=== PATIENT | female | born 1955 | race Caucasian/White ===

== ENCOUNTER → 2016-10-11 | Outpatient (CLI) | payer OTHER | END | disposition home or self-care (01) | LOC: CARD 12:30 | PROVIDERS: ATTEND Registered Nurse | DX: R94.31 Abnormal electrocardiogram [ECG] [EKG] (principal); S09.90XS Unspecified injury of head, sequela; X58.XXXS Exposure to other specified factors, sequela | CPT/HCPCS: 95819 ==

== ENCOUNTER 2020-12-28 09:18 | Inpatient (IN) | payer SELFPAY ==
[~2020-12-28] VITALS: Ht 172.7 cm; Wt 85.0 kg
[2020-12-28] MEDS ORDERED: KETOROLAC 30 MG/1 ML ONE (10:26)
[2020-12-28] MEDS ORDERED: ONDANSETRON 2MG/ML, 2ML ONE (10:26)
--- NOTE | 2020-12-28 10:49 | NUR ---
IV PLACED, LABS DRAWN WITH START. COVID SWAB COMPLETED/WALKED TO LAB. PT ON ALL ROOM MONITORING. MEDS GIVEN FOR NAUSEA AND CW PAIN, CLARK, SORE THROAT PER ERP ORDER. CALL LIGHT WITHIN REACH.
[2020-12-28] MEDS ORDERED: KETOROLAC 15 MG/1ML IVPush ONE (11:00)
[2020-12-28] MEDS ORDERED: ONDANSETRON 2MG/ML, 2ML IVPush ONE (11:00)
[2020-12-28 11:01] LABS: BASOPHILS % (AUTO) 1 % (0-1); EOSINOPHILS % (AUTO) 0 % (1-7); LYMPHOCYTES % (AUTO) 20 % (22-44); MEAN CORPUSCULAR HEMOGLOBIN 29.2 pg (27.0-34.8); MEAN CORPUSCULAR HGB CONC 34.3 g/dL (32.4-35.8); MEAN PLATELET VOLUME 9.6 fL (7.4-10.4); MONOCYTES % (AUTO) 18 % (2-9); NEUTROPHILS % (AUTO) 62 % (42-75); PLATELET COUNT 146 x10^3/uL (130-400); RED BLOOD COUNT 5.35 x10^6/uL (3.82-5.3); RED CELL DISTRIBUTION WIDTH 13.7 % (9.6-15.2)
[2020-12-28 11:09] LABS: ALBUMIN 4.2 g/dL (3.4-5.0); ANION GAP 7 mmol/L (5-15); CALCIUM 9.5 mg/dL (8.5-10.1); CHLORIDE 97 mmol/L (98-107)
[2020-12-28 11:16] LABS: ALANINE AMINOTRANSFERASE 52 U/L (12-78); ALKALINE PHOSPHATASE 79 U/L (45-117); BILIRUBIN,TOTAL 0.5 mg/dL (0.2-1.0); CREATININE 0.68 mg/dL (0.55-1.02)
[2020-12-28 11:17] LABS: TOTAL PROTEIN 8.5 g/dL (6.4-8.2)
[2020-12-28] MEDS ORDERED: SODIUM CHLORIDE 0.9% 1,000ML IVBOLUS ONE (11:30)
[2020-12-28] MEDS ORDERED: SODIUM CHLORIDE FLUSH 10ML SYR IVF ONE ×2 (11:30)
[2020-12-28] MEDS ORDERED: POTASSIUM CHLORIDE 20 MEQ PACKET ONE (11:34)
[2020-12-28] MEDS ORDERED: POTASSIUM CHLORIDE 20 MEQ TAB.ER.PRT PO ONE (12:00)
[2020-12-28] MEDS ORDERED: CEFTRIAXONE 1,000 MG in DEXTROSE 5% 50 ML IVPB ONE (12:00)
[2020-12-28] MEDS ORDERED: ACETAMINOPHEN 500 MG TABLET PO ONE (13:00)
[2020-12-28] MEDS ORDERED: DEXAMETHASONE 4 MG/ML, 1ML IVPush ONE (13:00)
[2020-12-28] MEDS ORDERED: DEXAMETHASONE 4 MG/ML, 1ML ONE (13:09)
[2020-12-28] MEDS ORDERED: ACETAMINOPHEN 500 MG TABLET ONE (13:10)
--- NOTE | 2020-12-28 13:20 | NUR ---
PT MEDICATED PER ERP ORDER. PT REPORTS CLARK AT 8/10-TYLENOL GIVEN. H IN TO SEE PT. REPORT TO KELLY BARRY READY FOR TRANSPORT.
[2020-12-28] MEDS ORDERED: ONDANSETRON 2MG/ML, 2ML IVPush PRN (13:30)
[2020-12-28] MEDS ORDERED: KETOROLAC 30 MG/1 ML IV PRN (13:30)
[2020-12-28] MEDS ORDERED: GUAIFENESIN/COD200MG-20MG/10ML LIQUID PO PRN (13:30)
[2020-12-28] MEDS ORDERED: hydrALAzine 20 MG/ML, 1ML IVPush PRN (13:30)
[2020-12-28 13:40] LABS: C-REACTIVE PROTEIN, QUANT 1.4 mg/dL (0.02-0.49)
--- NOTE | 2020-12-28 14:40 | NUR ---
CALL TO FLOOR INQUIRING ON THEIR ABILITY TO TRANSPORT PT TO ADMIT ROOM. RN AND ADDITIONAL STAFF TO TRANSPORT.
[2020-12-28 14:43] LABS: FREE T4 (FREE THYROXINE) 1.33 ng/dL (0.76-1.46)
[2020-12-28 14:53] VITALS: BP 110/72
[2020-12-28] MEDS ORDERED: LEVE500T8 PO (14:53)
[2020-12-28] MEDS ORDERED: OXYC-306 PO (14:53)
[2020-12-28] MEDS ORDERED: LOSA1TAB22 PO (14:53)
[2020-12-28] MEDS ORDERED: SERT100T PO (14:53)
[2020-12-28] MEDS: ASCORBIC ACID 500 MG TABLET PO SCH (15:31)
[2020-12-28] MEDS: AZITHROMYCIN 500 MG TABLET PO SCH (15:31)
[2020-12-28] MEDS: ENOXAPARIN 30 MG/0.3 ML SQ SCH (15:31)
[2020-12-28] MEDS: FAMOTIDINE 20 MG TABLET PO SCH (19:59)
[2020-12-28] MEDS: LEVETIRACETAM 500 MG TABLET PO SCH (19:59)
[2020-12-28] MEDS: TRAZODONE 50MG TABLET PO SCH (19:59)
[2020-12-28] MEDS: MELATONIN 5 MG TABLET PO SCH (20:00)
[2020-12-28] MEDS: SODIUM CHLORIDE FLUSH 10ML SYR IVF SCH (20:00)
[2020-12-28 21:05] VITALS: BP 108/73
[2020-12-28] MEDS ORDERED: TEMAZEPAM 15 MG CAPSULE PO PRN (22:00)
[2020-12-29 02:20] VITALS: BP 119/73
[2020-12-29] MEDS: ENOXAPARIN 30 MG/0.3 ML SQ SCH ×2 (02:31→15:33)
[2020-12-29 02:46] LABS: MICROSCOPIC NOT IND
[2020-12-29 06:39] LABS: BASOPHILS % (AUTO) 1 % (0-1); EOSINOPHILS % (AUTO) 0 % (1-7); LYMPHOCYTES % (AUTO) 22 % (22-44); MEAN CORPUSCULAR HEMOGLOBIN 29.2 pg (27.0-34.8); MEAN CORPUSCULAR HGB CONC 34.3 g/dL (32.4-35.8); MEAN PLATELET VOLUME 9.1 fL (7.4-10.4); MONOCYTES % (AUTO) 12 % (2-9); NEUTROPHILS % (AUTO) 66 % (42-75); PLATELET COUNT 126 x10^3/uL (130-400); RED BLOOD COUNT 4.79 x10^6/uL (3.82-5.3); RED CELL DISTRIBUTION WIDTH 13.6 % (9.6-15.2)
[2020-12-29] MEDS: DEXAMETHASONE 4 MG/ML, 1ML IVPush SCH (06:48)
[2020-12-29 06:51] LABS: ALANINE AMINOTRANSFERASE 36 U/L (12-78); ALBUMIN 3.4 g/dL (3.4-5.0); ANION GAP 7 mmol/L (5-15); CALCIUM 8.7 mg/dL (8.5-10.1); CHLORIDE 101 mmol/L (98-107); CREATININE 0.48 mg/dL (0.55-1.02)
[2020-12-29 06:52] LABS: ALKALINE PHOSPHATASE 68 U/L (45-117); BILIRUBIN,TOTAL 0.4 mg/dL (0.2-1.0); TOTAL PROTEIN 7.2 g/dL (6.4-8.2)
[2020-12-29] MEDS ORDERED: POTASSIUM CHLORIDE 20 MEQ TAB.ER.PRT PO ONE (08:00)
[2020-12-29 08:20] VITALS: BP 125/81
[2020-12-29] MEDS: ASCORBIC ACID 500 MG TABLET PO SCH ×2 (08:52→15:33)
[2020-12-29] MEDS: FAMOTIDINE 20 MG TABLET PO SCH ×2 (08:52→20:18)
[2020-12-29] MEDS: THIAMINE 100MG TABLET PO SCH (08:52)
[2020-12-29] MEDS: AZITHROMYCIN 500 MG TABLET PO SCH (08:53)
[2020-12-29] MEDS: SERTRALINE 100MG TABLET PO SCH (08:54)
[2020-12-29] MEDS: LEVETIRACETAM 500 MG TABLET PO SCH ×2 (08:54→20:18)
[2020-12-29] MEDS: ZINC SULFATE 220 MG CAPSULE PO SCH (08:54)
[2020-12-29] MEDS: CHOLECALCIFEROL 1,000 UNIT TABLET PO SCH (08:55)
[2020-12-29] MEDS: SODIUM CHLORIDE FLUSH 10ML SYR IVF SCH ×2 (08:55→20:20)
[2020-12-29] MEDS ORDERED: LOSARTAN 50MG TABLET PO SCH (09:00)
[2020-12-29] MEDS: OXYcodone/APAP 7.5/325MG TABLET PO PRN ×3 (09:11→20:18)
[2020-12-29 12:41] VITALS: BP 99/66
[2020-12-29] MEDS: CEFTRIAXONE 2 GM in DEXTROSE 5% 50 ML IVPB SCH (12:48)
[2020-12-29 20:05] VITALS: BP 113/74
[2020-12-29] MEDS: MELATONIN 5 MG TABLET PO SCH (20:16)
[2020-12-29] MEDS: TRAZODONE 50MG TABLET PO SCH (20:18)
[2020-12-29 23:57] VITALS: BP 105/70
[2020-12-30] MEDS: OXYcodone/APAP 7.5/325MG TABLET PO PRN ×3 (02:52→16:51)
[2020-12-30] MEDS: ENOXAPARIN 30 MG/0.3 ML SQ SCH ×2 (02:53→14:47)
[2020-12-30 06:55] LABS: ANION GAP 6 mmol/L (5-15); CALCIUM 8.9 mg/dL (8.5-10.1); CHLORIDE 101 mmol/L (98-107)
[2020-12-30 06:56] LABS: CREATININE 0.39 mg/dL (0.55-1.02)
[2020-12-30] MEDS ORDERED: POTASSIUM CHLORIDE 20 MEQ TAB.ER.PRT PO ONE ×2 (07:30→13:30)
[2020-12-30] MEDS: ASCORBIC ACID 500 MG TABLET PO SCH ×2 (09:18→16:51)
[2020-12-30] MEDS: FAMOTIDINE 20 MG TABLET PO SCH ×2 (09:18→20:10)
[2020-12-30] MEDS: THIAMINE 100MG TABLET PO SCH (09:18)
[2020-12-30] MEDS: CHOLECALCIFEROL 1,000 UNIT TABLET PO SCH (09:19)
[2020-12-30] MEDS: AZITHROMYCIN 500 MG TABLET PO SCH (09:19)
[2020-12-30] MEDS: ZINC SULFATE 220 MG CAPSULE PO SCH (09:19)
[2020-12-30] MEDS: SODIUM CHLORIDE FLUSH 10ML SYR IVF SCH ×2 (09:19→20:10)
[2020-12-30] MEDS: LEVETIRACETAM 500 MG TABLET PO SCH ×2 (09:19→20:10)
[2020-12-30] MEDS: DEXAMETHASONE 4 MG/ML, 1ML IVPush SCH (09:19)
[2020-12-30] MEDS: SERTRALINE 100MG TABLET PO SCH (09:20)
[2020-12-30 09:31] VITALS: BP 112/71
[2020-12-30] MEDS ORDERED: MAGNESIUM SULFATE PMX 2GM/50ML 50 ML IV ONE (10:00)
[2020-12-30] MEDS ORDERED: REMDESIVIR 200 MG in SODIUM CHLORIDE 0.9% 250 ML IVPB ONE (14:00)
[2020-12-30] MEDS: CEFTRIAXONE 2 GM in DEXTROSE 5% 50 ML IVPB SCH (14:06)
[2020-12-30 14:07] VITALS: BP 117/75
[2020-12-30] MEDS: FUROSEMIDE 40 MG/4 ML IV SCH (14:46)
[2020-12-30 19:45] VITALS: BP 116/73
[2020-12-30] MEDS: TRAZODONE 50MG TABLET PO SCH (20:10)
[2020-12-30] MEDS: MELATONIN 5 MG TABLET PO SCH (20:10)
[2020-12-31 01:13] VITALS: BP 94/61
[2020-12-31 01:26] VITALS: BP 105/68
[2020-12-31] MEDS: ACETAMINOPHEN 325 MG TABLET PO PRN ×2 (01:42→17:50)
[2020-12-31] MEDS: ENOXAPARIN 30 MG/0.3 ML SQ SCH ×2 (04:17→16:08)
[2020-12-31 07:06] LABS: CALCIUM 8.9 mg/dL (8.5-10.1); CHLORIDE 103 mmol/L (98-107)
[2020-12-31 07:18] LABS: ALANINE AMINOTRANSFERASE 41 U/L (12-78); ALBUMIN 3.3 g/dL (3.4-5.0); ALKALINE PHOSPHATASE 66 U/L (45-117); ANION GAP 9 mmol/L (5-15); BILIRUBIN,TOTAL 0.4 mg/dL (0.2-1.0); CREATININE 0.39 mg/dL (0.55-1.02); TOTAL PROTEIN 7.3 g/dL (6.4-8.2)
[2020-12-31] MEDS: LEVETIRACETAM 500 MG TABLET PO SCH ×2 (09:00→20:27)
[2020-12-31] MEDS: SERTRALINE 100MG TABLET PO SCH (09:00)
[2020-12-31] MEDS: THIAMINE 100MG TABLET PO SCH (09:00)
[2020-12-31] MEDS: AZITHROMYCIN 500 MG TABLET PO SCH (09:01)
[2020-12-31] MEDS: ZINC SULFATE 220 MG CAPSULE PO SCH (09:01)
[2020-12-31] MEDS: CHOLECALCIFEROL 1,000 UNIT TABLET PO SCH (09:01)
[2020-12-31] MEDS: ASCORBIC ACID 500 MG TABLET PO SCH ×2 (09:01→16:08)
[2020-12-31] MEDS: OXYcodone/APAP 7.5/325MG TABLET PO PRN ×4 (09:01→22:20)
[2020-12-31] MEDS: FAMOTIDINE 20 MG TABLET PO SCH ×2 (09:01→20:27)
[2020-12-31] MEDS: DEXAMETHASONE 4 MG/ML, 1ML IVPush SCH (09:02)
[2020-12-31] MEDS: SODIUM CHLORIDE FLUSH 10ML SYR IVF SCH ×2 (09:02→20:26)
[2020-12-31] MEDS: FUROSEMIDE 40 MG/4 ML IV SCH (09:02)
[2020-12-31 09:19] VITALS: BP_SYST 101; BP_SYST 127; BP_DIAS 63; BP_DIAS 81
[2020-12-31 13:33] VITALS: BP 107/69
[2020-12-31] MEDS: CEFTRIAXONE 2 GM in DEXTROSE 5% 50 ML IVPB SCH (13:53)
[2020-12-31] MEDS: REMDESIVIR 100 MG in SODIUM CHLORIDE 0.9% 250 ML IVPB SCH (14:49)
[2020-12-31 19:43] VITALS: BP 103/63
[2020-12-31] MEDS: TRAZODONE 50MG TABLET PO SCH (20:26)
[2020-12-31] MEDS: MELATONIN 5 MG TABLET PO SCH (20:27)
[2021-01-01 00:59] VITALS: BP 100/62
[2021-01-01] MEDS: ENOXAPARIN 30 MG/0.3 ML SQ SCH ×2 (03:06→14:20)
[2021-01-01] MEDS: OXYcodone/APAP 7.5/325MG TABLET PO PRN ×5 (03:06→21:48)
[2021-01-01 06:20] LABS: ALANINE AMINOTRANSFERASE 41 U/L (12-78); ALBUMIN 3.1 g/dL (3.4-5.0); ANION GAP 7 mmol/L (5-15); CHLORIDE 100 mmol/L (98-107); CREATININE 0.46 mg/dL (0.55-1.02)
[2021-01-01 06:23] LABS: ALKALINE PHOSPHATASE 66 U/L (45-117); BILIRUBIN,TOTAL 0.4 mg/dL (0.2-1.0); TOTAL PROTEIN 7.3 g/dL (6.4-8.2)
[2021-01-01] MEDS ORDERED: POTASSIUM CHLORIDE 20 MEQ TAB.ER.PRT PO ONE (06:30)
[2021-01-01 07:40] VITALS: BP 107/70
[2021-01-01] MEDS: THIAMINE 100MG TABLET PO SCH (07:45)
[2021-01-01] MEDS: LEVETIRACETAM 500 MG TABLET PO SCH ×2 (07:45→20:06)
[2021-01-01] MEDS: SERTRALINE 100MG TABLET PO SCH (07:45)
[2021-01-01] MEDS: AZITHROMYCIN 500 MG TABLET PO SCH (07:45)
[2021-01-01] MEDS: ASCORBIC ACID 500 MG TABLET PO SCH ×2 (07:46→17:20)
[2021-01-01] MEDS: ZINC SULFATE 220 MG CAPSULE PO SCH (07:46)
[2021-01-01] MEDS: FAMOTIDINE 20 MG TABLET PO SCH ×2 (07:46→20:06)
[2021-01-01] MEDS: CHOLECALCIFEROL 1,000 UNIT TABLET PO SCH (07:47)
[2021-01-01] MEDS: DEXAMETHASONE 4 MG/ML, 1ML IVPush SCH (07:49)
[2021-01-01] MEDS: FUROSEMIDE 40 MG/4 ML IV SCH (07:49)
[2021-01-01] MEDS: SODIUM CHLORIDE FLUSH 10ML SYR IVF SCH ×2 (07:50→20:06)
[2021-01-01 12:52] VITALS: BP 117/73
[2021-01-01] MEDS: CEFTRIAXONE 2 GM in DEXTROSE 5% 50 ML IVPB SCH (13:05)
[2021-01-01] MEDS: POTASSIUM CHLORIDE 20 MEQ TAB.ER.PRT PO SCH (13:05)
[2021-01-01] MEDS: REMDESIVIR 100 MG in SODIUM CHLORIDE 0.9% 250 ML IVPB SCH (14:14)
[2021-01-01 19:12] VITALS: BP 111/68
[2021-01-01] MEDS: MELATONIN 5 MG TABLET PO SCH (20:06)
[2021-01-01] MEDS: TRAZODONE 50MG TABLET PO SCH (20:06)
[2021-01-02 01:51] VITALS: BP 116/74
[2021-01-02] MEDS: ENOXAPARIN 30 MG/0.3 ML SQ SCH ×2 (02:53→15:00)
[2021-01-02] MEDS: OXYcodone/APAP 7.5/325MG TABLET PO PRN ×3 (05:30→17:05)
[2021-01-02 05:55] LABS: BASOPHILS % (AUTO) 1 % (0-1); EOSINOPHILS % (AUTO) 0 % (1-7); LYMPHOCYTES % (AUTO) 26 % (22-44); MEAN CORPUSCULAR HEMOGLOBIN 28.6 pg (27.0-34.8); MEAN CORPUSCULAR HGB CONC 33.4 g/dL (32.4-35.8); MEAN PLATELET VOLUME 8.6 fL (7.4-10.4); MONOCYTES % (AUTO) 14 % (2-9); NEUTROPHILS % (AUTO) 60 % (42-75); PLATELET COUNT 208 x10^3/uL (130-400); RED BLOOD COUNT 4.62 x10^6/uL (3.82-5.3); RED CELL DISTRIBUTION WIDTH 13.4 % (9.6-15.2)
[2021-01-02 06:06] LABS: CHLORIDE 104 mmol/L (98-107)
[2021-01-02 06:21] LABS: ALANINE AMINOTRANSFERASE 44 U/L (12-78); ALBUMIN 3.1 g/dL (3.4-5.0); ALKALINE PHOSPHATASE 62 U/L (45-117); ANION GAP 7 mmol/L (5-15); BILIRUBIN,TOTAL 0.3 mg/dL (0.2-1.0)
[2021-01-02] MEDS ORDERED: POTASSIUM CHLORIDE 20 MEQ TAB.ER.PRT PO ONE (07:00)
[2021-01-02 07:35] VITALS: BP 111/71
[2021-01-02] MEDS: ZINC SULFATE 220 MG CAPSULE PO SCH (08:08)
[2021-01-02] MEDS: FUROSEMIDE 40 MG/4 ML IV SCH (08:08)
[2021-01-02] MEDS: LEVETIRACETAM 500 MG TABLET PO SCH ×2 (08:08→20:49)
[2021-01-02] MEDS: CHOLECALCIFEROL 1,000 UNIT TABLET PO SCH (08:08)
[2021-01-02] MEDS: POTASSIUM CHLORIDE 20 MEQ TAB.ER.PRT PO SCH (08:08)
[2021-01-02] MEDS: SERTRALINE 100MG TABLET PO SCH (08:09)
[2021-01-02] MEDS: FAMOTIDINE 20 MG TABLET PO SCH ×2 (08:09→20:49)
[2021-01-02] MEDS: SODIUM CHLORIDE FLUSH 10ML SYR IVF SCH ×2 (08:09→20:49)
[2021-01-02] MEDS: AZITHROMYCIN 500 MG TABLET PO SCH (08:09)
[2021-01-02] MEDS: ASCORBIC ACID 500 MG TABLET PO SCH ×2 (08:09→17:04)
[2021-01-02] MEDS: DEXAMETHASONE 4 MG/ML, 1ML IVPush SCH (08:09)
[2021-01-02] MEDS: THIAMINE 100MG TABLET PO SCH (08:09)
[2021-01-02 12:21] VITALS: BP 121/77
[2021-01-02] MEDS: CEFTRIAXONE 2 GM in DEXTROSE 5% 50 ML IVPB SCH (13:09)
[2021-01-02] MEDS: REMDESIVIR 100 MG in SODIUM CHLORIDE 0.9% 250 ML IVPB SCH (15:00)
[2021-01-02 19:52] VITALS: BP 129/77
[2021-01-02] MEDS: MELATONIN 5 MG TABLET PO SCH (20:49)
[2021-01-02] MEDS: TRAZODONE 50MG TABLET PO SCH (20:49)
[2021-01-03 02:00] VITALS: BP 107/67
[2021-01-03] MEDS: ENOXAPARIN 30 MG/0.3 ML SQ SCH (04:09)
[2021-01-03 06:03] LABS: CHLORIDE 105 mmol/L (98-107)
[2021-01-03 06:10] LABS: ALANINE AMINOTRANSFERASE 48 U/L (12-78); ALBUMIN 3.1 g/dL (3.4-5.0); ALKALINE PHOSPHATASE 64 U/L (45-117); ANION GAP 8 mmol/L (5-15); BILIRUBIN,TOTAL 0.4 mg/dL (0.2-1.0); CALCIUM 9.2 mg/dL (8.5-10.1); CREATININE 0.37 mg/dL (0.55-1.02); TOTAL PROTEIN 7.1 g/dL (6.4-8.2)
[2021-01-03 08:30] VITALS: BP 115/76
[2021-01-03] MEDS: CHOLECALCIFEROL 1,000 UNIT TABLET PO SCH (09:05)
[2021-01-03] MEDS: ZINC SULFATE 220 MG CAPSULE PO SCH (09:06)
[2021-01-03] MEDS: POTASSIUM CHLORIDE 20 MEQ TAB.ER.PRT PO SCH (09:06)
[2021-01-03] MEDS: AZITHROMYCIN 500 MG TABLET PO SCH (09:06)
[2021-01-03] MEDS: FAMOTIDINE 20 MG TABLET PO SCH (09:06)
[2021-01-03] MEDS: SERTRALINE 100MG TABLET PO SCH (09:06)
[2021-01-03] MEDS: ASCORBIC ACID 500 MG TABLET PO SCH (09:06)
[2021-01-03] MEDS: DEXAMETHASONE 4 MG/ML, 1ML IVPush SCH (09:07)
[2021-01-03] MEDS: FUROSEMIDE 40 MG/4 ML IV SCH (09:07)
[2021-01-03] MEDS: LEVETIRACETAM 500 MG TABLET PO SCH (09:07)
[2021-01-03] MEDS: SODIUM CHLORIDE FLUSH 10ML SYR IVF SCH (09:07)
[2021-01-03] MEDS: THIAMINE 100MG TABLET PO SCH (09:08)
[2021-01-03] MEDS: OXYcodone/APAP 7.5/325MG TABLET PO PRN ×2 (09:10→10:13)
== END 2021-01-03 09:40 | disposition left against medical advice (07) | DRG 177 ==
LOC: ED 09:56 → EDIP 12:27 → 3N 14:40
PROVIDERS: ADMIT Hospitalist; ATTEND Family Medicine
PROC: XW033E5 Introduction of Remdesivir Anti-infective into Peripheral Vein, Percutaneous Approach, New Technology Group 5 (ICD-10-PCS; principal; 2020-12-30)
DX: U07.1 COVID-19 (principal); J12.82 Pneumonia due to coronavirus disease 2019; J96.91 Respiratory failure, unspecified with hypoxia; E87.1 Hypo-osmolality and hyponatremia; E87.6 Hypokalemia; I10 Essential (primary) hypertension; F32.9 Major depressive disorder, single episode, unspecified; G89.29 Other chronic pain; Z53.29 Procedure and treatment not carried out because of patient's decision for other reasons; Z87.820 Personal history of traumatic brain injury; Z90.710 Acquired absence of both cervix and uterus; Z79.899 Other long term (current) drug therapy
CPT/HCPCS: 36415; 71045; 80048; 80053; 81003; 83605; 83615; 83735; 84100; 84145; 84439; 84443; 85025; 85379; 86140; 87040; 87070; 87205; 93005; 96374; 96375; G0378; J0696; J1100; J1650; J1885; J1940; J2405; U0005; J3475; J7030; J7050; U0003